=== PATIENT | female | born 1940 | race Caucasian/White ===

== ENCOUNTER 2016-09-10 06:01 | Inpatient (IN) | payer MEDICARE, BC ==
--- NOTE | 2016-08-31 16:26 | HP ---
HISTORY AND PHYSICAL: DATE OF OFFICE VISIT: 08/31/16 DATE OF ADMISSION/SURGERY: 09/10/16 SURGEON: Liseth Guthrie MD PROCEDURE: Left total hip arthroplasty. HISTORY OF PRESENT ILLNESS: Ms. Shetty is a 76-year-old female with complaints of left hip pain. She has failed conservative management and has elected to proceed with a left total hip arthroplasty, which is scheduled for with Dr. Guthrie. PAST MEDICAL HISTORY: 1. Hypertension. 2. Hypothyroidism. PAST SURGICAL HISTORY: 1. Appendectomy. 2. Tubal ligation. 3. Bilateral carpal tunnel release. 4. Cataract surgery x2. 5. Right total knee arthroplasty. 6. Right total hip arthroplasty. CURRENT MEDICATIONS: 1. Levothyroxine. 2. Hydrochlorothiazide. 3. Enalapril. 4. Naproxen. 5. Aspirin. 6. Vitamin D. 7. Vitamin C. 8. Calcium. 9. Albuterol. ALLERGIES: No known drug allergies. FAMILY HISTORY: Heart disease and lymphoma. SOCIAL HISTORY: She is a 76-year-old female. She is . She does not smoke or use drugs. She drinks a glass of wine with dinner. REVIEW OF SYSTEMS: A complete 14-point review of systems was reviewed with the patient. All was negative or noncontributory. PHYSICAL EXAMINATION GENERAL: She is well developed, well nourished, in no acute distress. VITAL SIGNS: She stands 5 feet 3 inches tall, weighs 180 pounds, her blood pressure is 154/80, and heart rate 64. HEENT: Normocephalic, atraumatic. NECK: Supple. No palpable lymph nodes. Trachea is midline. PULMONARY: Clear to auscultation bilaterally. No wheezes, rhonchi, or rales. CARDIO: Regular rate and rhythm. Strong S1, S2. No murmurs, gallops, or rubs. No peripheral edema. ABDOMEN: Soft, nontender, and nondistended. NEUROLOGICAL: She is alert and oriented x3. Cranial nerves II through XII are intact. MUSCULOSKELETAL: Left lower extremity: The skin is intact. She walks with a slightly antalgic-type gait favoring her left hip. She has decreased range of motion of the left hip secondary to pain. She has 2+ dorsalis pedis pulses and intact sensation and her lower extremity muscle group strengths are intact to 5/ 5. ASSESSMENT AND PLAN: Ms. Shetty is a 76-year-old female with complaints of left hip pain secondary to advanced osteoarthritis. She has failed conservative management and has elected to proceed with the left total hip arthroplasty, which is scheduled for 09/10/16. Coumadin, Colace, and Percocet were sent to her pharmacy at today's visit for postoperative pain control and DVT prophylaxis. She takes aspirin and naproxen daily and I have instructed her to stop these medications 1 week prior to the surgery. Dr. Guthrie discussed the risks and benefits of the surgery at today's visit and all of her questions were answered. She will see Dr. Guthrie back in clinic 10 to 14 days after the surgery. MAGNOLIA LAVAREZ [id number]/[facility] #: [id number] MTDD
[~2016-09-10 06:01] MED LIST: Buffered Lidocaine 1% SYRIN* 3 ML/SYR SYRINGE INTRADERM ONE; Famotidine IV* 10 MG/ML 2 ML (20 mg) IV ONE; Levalbuterol 0.63MG/3ML NEB INH ONE; Metoclopramide TAB* 10 MG PO ONE; NS 0.9% 1000 ML* 1,000 ML IV ONE
[2016-09-10] MEDS ORDERED: ceFAZolin 2 GM PREMIX(*) 2 GM/50 ML BAG IVPB ONE (06:18)
[2016-09-10] MEDS ORDERED: Famotidine IV* 10 MG/ML 2 ML (20 mg) ONE (06:18)
[2016-09-10] MEDS ORDERED: Metoclopramide TAB* 10 MG ONE (06:18)
[2016-09-10] MEDS ORDERED: Levalbuterol 1.25MG/0.5ML NEB ONE (06:18)
[2016-09-10] MEDS ORDERED: fentaNYL* 50 MCG/ML 2 ML VIAL (100 MCG VIAL) ONE (07:06)
[2016-09-10] MEDS ORDERED: KETAMINE HCL* 50 MG/ML 10 ML VIAL ONE (07:06)
[2016-09-10] MEDS ORDERED: Ketorolac INJ* 30 MG/ML 1 ML VIAL ONE (07:06)
[2016-09-10] MEDS ORDERED: Lidocaine 2% PF* 5 ML VIAL ONE (07:06)
[2016-09-10] MEDS ORDERED: Bupivacaine 0.5% SDV PF* 30 ML VIAL ONE ×2 (07:06→08:30)
[2016-09-10] MEDS ORDERED: Midazolam* 1 MG/ML 5 ML VIAL (5 MG) ONE (07:06)
[2016-09-10] MEDS ORDERED: Dexamethasone IV* 4 MG/ML 1 ML (4 MG) ONE (07:06)
[2016-09-10] MEDS ORDERED: Morphine PF AMP (0.5MG/ML)* 5 MG/10 ML AMP ONE (07:06)
[2016-09-10] MEDS ORDERED: Propofol* 10 MG/ML 20 ML BTL IV PUSH ONE (07:06)
[2016-09-10] MEDS ORDERED: Ondansetron INJ* 2 MG/ML VIAL ONE (07:06)
[2016-09-10] MEDS ORDERED: Midazolam* 1 MG/ML 2 ML VIAL (2 MG) ONE ×2 (07:52→10:24)
[2016-09-10] MEDS ORDERED: Propofol* 500 MG/50 ML BTL ONE (08:20)
[2016-09-10] MEDS ORDERED: EPHEDrine (Pressors)* 50 MG/ML VIAL ONE (08:35)
[2016-09-10] MEDS ORDERED: Phenylephrine INJ* 10 MG/ML 1 ML VIAL (10 MG) ONE (08:52)
[2016-09-10] MEDS ORDERED: Ondansetron INJ* 2 MG/ML VIAL IV PRN ×2 (09:04→09:06)
[2016-09-10] MEDS ORDERED: DiMENhydriNATE IV* 50 MG/ML VIAL IV PUSH PRN (09:04)
[2016-09-10] MEDS ORDERED: Phenylephrine INJ* 50 MG in NS 0.9% 250 ML* 245 ML IV PRN (09:04)
[2016-09-10] MEDS ORDERED: fentaNYL* 50 MCG/ML 2 ML VIAL (100 MCG VIAL) IV PRN (09:04)
[2016-09-10] MEDS ORDERED: diPHENhydraMINE IV* 50 MG/ML 1 ml VIAL (BENADRYL) IV PRN ×2 (09:04→09:06)
[2016-09-10] MEDS ORDERED: Naloxone* 0.4 MG/ML 1 ML VIAL IV PRN (09:06)
[2016-09-10] MEDS ORDERED: oxyCODONE/Acetamin 5/325 MG* TAB PO PRN ×2 (09:06)
[2016-09-10] MEDS ORDERED: Ketorolac INJ* 30 MG/ML 1 ML VIAL IV PRN (09:06)
[2016-09-10] MEDS ORDERED: EPHEDrine (Pressors)* 50 MG/ML VIAL IV PUSH PRN (09:10)
[2016-09-10] MEDS ORDERED: Lactated Ringers 500 ml BAG* 500 ML IV PRN (09:10)
--- NOTE | 2016-09-10 10:28 | RAD ---
INDICATION: Left total hip replacement COMPARISON: June 17, 2016 TECHNIQUE/findings: A single crosstable lateral portable image of the pelvis obtained for sizing shows initiation of total hip arthroplasty with placement of a prosthesis for sizing purposes.
[2016-09-10] MEDS ORDERED: LACTULOSE* 30 ML UDC PO PRN (11:20)
[2016-09-10] MEDS ORDERED: Polyethylene Glycol 3350* 17 GM PACKET PO PRN (11:20)
[2016-09-10] MEDS ORDERED: Morphine INJ* 2 MG/ML 1 ML SYRINGE IV PRN (11:20)
[2016-09-10] MEDS ORDERED: Bisacodyl SUPP* 10 MG SUPP PR PRN (11:20)
[2016-09-10] MEDS ORDERED: Acetaminophen TAB* 325 MG PO PRN (11:20)
[2016-09-10] MEDS: Ropivacaine* 300 MG in NS 0.9% 250 ML* 240 ML EPIDURAL SCH ×2 (12:32→15:03)
--- NOTE | 2016-09-10 15:09 | RAD ---
INDICATION: Status post total left hip replacement surgery. COMPARISON: Comparison is made with a prior x-ray study from June 17, 2016. TECHNIQUE: An AP view of the pelvis was obtained. FINDINGS: The patient is status post total left hip replacement surgery and remote total right hip replacement surgery. The bones and prostheses are in normal alignment. There is a small amount of air adjacent to the left hip consistent with the patient's recent surgery. IMPRESSION: STATUS POST TOTAL LEFT HIP REPLACEMENT SURGERY.
--- NOTE | 2016-09-10 15:09 | RAD ---
INDICATION: Status post total left hip replacement surgery. COMPARISON: Comparison is made with a prior x-ray study of the left hip from June 17, 2016. TECHNIQUE: AP and lateral films of the left hip were obtained. FINDINGS: The patient is status post total left hip replacement surgery. The bones and prostheses are in normal alignment. There is a small amount of air in the adjacent soft tissues consistent with the patient's recent surgery. IMPRESSION: STATUS POST TOTAL LEFT HIP REPLACEMENT SURGERY.
[2016-09-10] MEDS: ceFAZolin 1 GM in Dextrose (*) 1 GM/50 ML BAG IVPB SCH ×2 (15:43→23:34)
--- NOTE | 2016-09-10 15:49 | CONS ---
CONSULTATION REPORT: DATE OF CONSULT: 09/10/16 PRIMARY CARE PROVIDER: Frederick Damon MD ATTENDING PHYSICIAN: Savi Joseph MD* (dictated by Demarcus Gray NP) PROVIDER REQUESTING CONSULTATION: Dr. Guthrie HISTORY OF PRESENT ILLNESS: Ms. Shetty is a 76-year-old female with past medical history significant for hypertension, hypothyroidism, and arthritis who underwent an elective left total hip arthroplasty today with Dr. Guthrie. Postoperatively, the patient is doing well. She is hypotensive due to her spinal anesthesia in the recovery room. The patient states that leading up to surgery, she has been in her good state of health with the exception of left hip pain. The patient denies any recent fever, chills, chest pain, shortness of breath, nausea, vomiting, or diarrhea. Hospitalists were asked to assist with the management of this patient during her postoperative period. PAST MEDICAL HISTORY: 1. Hypertension. 2. Hypothyroidism. 3. Arthritis. PAST SURGICAL HISTORY: 1. Status post appendectomy. 2. Status post tubal ligation. 3. Status post bilateral carpal tunnel release. 4. Status post bilateral cataract extractions. 5. Status post right total knee arthroplasty. 6. Status post right total hip arthroplasty. HOME MEDICATIONS: Include: 1. Levothyroxine 100 mcg oral daily. 2. Hydrochlorothiazide 25 mg oral daily. 3. Enalapril 10 mg oral twice daily. 4. Naproxen 500 mg oral twice daily. 5. Aspirin 81 mg oral daily. 6. Vitamin D 2000 IU oral daily. 7. Albuterol 1 to 2 puffs inhalation every 4 to 6 hours as needed for shortness of breath or wheeze. 8. Zyrtec 10 mg oral daily as needed for allergy symptoms. ALLERGIES: No known drug allergies. FAMILY HISTORY: The patient denies any family history of coronary artery disease or diabetes mellitus. The patient's sister has a history of lymphoma. SOCIAL HISTORY: The patient denies smoking or recreational drug use. The patient drinks 1 glass of wine daily with dinner. The patient lives with her , Fausto Shetty, who will be her surrogate decision maker in the event she is unable to make decisions for herself. REVIEW OF SYSTEMS: I performed a 14-point review of systems. All the pertinent positives and negatives are mentioned in the history of present illness. The remaining review of systems are negative. PHYSICAL EXAM: Appearance: The patient is alert and appears to be in no acute distress. Vital Signs: Temperature 97.0, heart rate 76, respiratory rate 20, O2 sat 97% on 4 L via nasal cannula, and blood pressure 86/49. HEENT: Normocephalic, atraumatic. Pupils are equal and reactive to light. Extraocular movements are intact. Cardiovascular: Regular rate and rhythm. S1 , S2 present. There are no murmurs, rubs, or gallops heard. Extremities: There is no lower extremity edema. DP and PT pulses are 2+ and symmetric. Respiratory: There is no accessory muscle use and the lungs are clear to auscultation bilaterally. Abdomen: Soft, nontender, and nondistended. There are bowel sounds present x4. Musculoskeletal: There is no clubbing or cyanosis noted. The patient exhibits good strength in all extremities, although she does have some limited movement in her lower extremities due to spinal anesthesia. Skin: There is a dressing on her left hip that is clean, dry, and intact. Neurological: Cranial nerves II through XII are grossly intact. The patient moves all extremities. Psychological: The patient is calm and cooperative. DIAGNOSTIC STUDIES/LAB DATA: Preop labs from 08/31/16: Urinalysis negative with no growth in the urine culture. Sodium 127, potassium 3.7, chloride 91, CO2 27, BUN 18, creatinine 0.90, and glucose 97. White blood cell count 6.9, hemoglobin 13.0, hematocrit 38, and platelet count 271. Sodium from today preoperative is 130. Chest x-ray from 08/31/16 shows no active cardiopulmonary disease. Preoperative EKG from 08/19/16 shows a normal sinus rhythm with a rate of 61. Pelvis x-ray from today, radiologist's impression: A single cross-table lateral portable image of the pelvis obtained for sizing shows initiation of total hip arthroplasty with placement of a prosthesis for sizing purposes. IMPRESSION: Ms. Shetty is a 76-year-old female with past medical history significant for hypertension, hypothyroidism, and arthritis who underwent an elective left total hip arthroplasty today with Dr. Guthrie. Hospitalists were asked to assist with the co-management of this patient during her hospitalization. 1. Status post left total hip arthroplasty: Management will be per Orthopedic Surgery. The patient had spinal anesthesia and will initially have epidural for pain control. The patient's hemoglobin and hematocrit will be trended. She will have Physical Therapy and Occupational Therapy. The patient will have a urinary catheter in place until postop day 1. 2. Hypertension: At this time, the patient is actually hypotensive with pressures in the 80s to 90s. I suspect this is related to the patient's spinal anesthesia. At this time, I recommend holding the patient's hydrochlorothiazide and enalapril. These can be restarted accordingly possibly in the morning based off of her blood pressures. 3. Hyponatremia. The patient's sodium has improved since her preoperative labs. Will recheck labs in the morning. 4. Hypothyroidism: The patient should be continued on her home levothyroxine dose. 5. Fluids, electrolytes, and nutrition: The patient will be on a clear liquid , to advance as tolerated diet. She will also receive IV fluids overnight. 6. DVT prophylaxis: The patient will be on Lovenox and warfarin per Orthopedic Surgery. 7. Code status: Full code. 8. Disposition: Disposition per Orthopedic Surgery. TIME SPENT: Time for this consultation was 45 minutes and 25 minutes was spent with the patient discussing medications, past medical history, and the events leading up to her arrival today and performing a physical examination. The case has been reviewed with the attending, Dr. Joseph, who agrees with the plan of care. Reviewed by DEMARCUS GRAY, LOPPER-C 09/10/16 2148 ADDENDUM TO CONSULTATION REPORT: Tracie Shetty is a 76-year-old female with history of left hip arthritis, who is status post left total hip arthroplasty. The patient also has a history of hypertension, hypothyroidism, and for those medical conditions, medicine service was consulted postoperatively for comanagement. For further details of the patient's consultation, please see history and physical dictated by Demarcus Gray NP on 09/10/16 with which I agree. Savi Joseph MD CC: Frederick Damon MD; Dr. Guthrie* [id number]/[facility] #: [id number]/[facility] #: [id number] ITALIA
--- NOTE | 2016-09-10 15:49 | CONS ---
CONSULTATION REPORT: ADDENDUM: Tracie Shetty is a 76-year-old female with history of left hip arthritis, who is status pos t left total hip arthroplasty. The patient also has a history of hypertension, hypothyroidism, and for those medical conditions, medicine service was consulted postoperatively for comanagement. For further details of the patient's consultation, please see history and physical dictated by Agatha Perez NP on 09/10/16 with which I agree. [id number]/[facility] #: [id number]
[2016-09-10] MEDS ORDERED: Warfarin TAB(*) 6 MG PO ONE (17:00)
[2016-09-10] MEDS: Docusate CAP* 100 MG PO SCH (21:31)
[2016-09-11] MEDS ORDERED: oxyCODONE TAB* 5 MG TAB PO PRN (01:00)
[2016-09-11] MEDS ORDERED: Lactated Ringers 500 ml BAG* 500 ML IV ONE ×2 (01:00→09:00)
[2016-09-11] MEDS ORDERED: oxyCODONE/Acetamin 5/325 MG* TAB PO PRN (01:00)
[2016-09-11] MEDS: oxyCODONE/Acetamin 5/325 MG* TAB PO PRN ×5 (03:45→20:58)
[2016-09-11] MEDS: ceFAZolin 1 GM in Dextrose (*) 1 GM/50 ML BAG IVPB SCH (05:56)
[2016-09-11] MEDS: Levothyroxine TAB* 100 MCG TAB PO SCH (05:56)
[2016-09-11] MEDS ORDERED: Ondansetron INJ* 2 MG/ML VIAL IV PRN (06:00)
[2016-09-11] MEDS ORDERED: Ondansetron TAB* 4 MG PO PRN (06:00)
[2016-09-11 07:14] LABS: Hematocrit 24 % (35-47); Hemoglobin 8.3 g/dl (12.0-16.0)
[2016-09-11 07:35] LABS: BUN/Creatinine Ratio 21.3 (8-20); Calcium 8.7 mg/dL (8.6-10.3); EGFR African American 89.9 (>60); EGFR Non-African American 69.9 (>60); Potassium 4.2 mmol/L (3.5-5.0)
--- NOTE | 2016-09-11 07:52 | OP ---
OPERATIVE REPORT: DATE OF OPERATION: 09/10/16 DATE OF : 42 SURGEON: Liseth Guthrie MD SECURITIES TELLER: MAGNOLIA Sotelo ANESTHESIOLOGIST: Dr. George. ANESTHESIA: Spinal anesthesia. PRE-OP DIAGNOSIS: Severe end-stage degenerative osteoarthritis of the left hip joint. POST-OP DIAGNOSIS: Severe end-stage degenerative osteoarthritis of the left hip joint. OPERATIVE PROCEDURE: Left total hip arthroplasty with modifier for morbid obesity adding 1 hour of time to the surgical case. INDICATIONS: Ms. Shetty is a 76-year-old female with years of increasingly severe left hip pain. Radiographs confirmed egal-cy-gzvy arthritis. She failed conservative treatment with antiinflammato yumiko, pain medication, ambulatory assistive devices, and physical therapy. She elected to undergo l eft total hip arthroplasty due to continued pain and decreased quality of life. Informed consent wa s obtained from the patient. She understood the risks of surgery included but were not limited to b leeding, infection, damage to nearby structures, continued pain, and need for further surgery. Intr aoperative fracture, nerve palsy, leg length discrepancy, dislocation, hardware failure, loosening, stroke, heart attack, blood clot, and . She wished to proceed. COMPLICATIONS: None. EBL: 400 cc. SPECIMEN: Femoral head and acetabular reaming sent to Pathology. HARDWARE USED: This is uncemented Aurora total hip arthroplasty hardware. For the cup, a Trident PSL cluster acetabular shell 50E, a 42E MDM cement with liner was used with 2 screws, 20 and 25 mm l ength. For the femur, an Accolade TMZF size 3 with a 127-degree neck, femoral head 28 -4 and the re storation ADM/MDM X3 insert 28-28/48-42E. INTRAOPERATIVE FINDINGS: Intraoperatively, the patient had severe end-stage arthritis with wear and thinning of the posterior acetabular wall. She had 10 cm or more of subcutaneous fat and her morbi dly obese body habitus did add significant operative time to the case. DESCRIPTION OF PROCEDURE: Ms. Shetty was identified in the preanesthesia unit. Her left lower extr emity was marked as the correct operative side. Informed consent was signed and placed in the chart . The patient was taken to the operating room and placed under spinal anesthesia. A Tineo catheter was placed. The patient was placed in the right lateral decubitus position with a Wixson setup. L eft lower extremity was prepped and draped in the usual sterile fashion. Preop time-out was made to correctly identify the patient's side and site. Appropriate perioperative antibiotics were given w ithin 1 hour of incision. A 15-cm posterior hip incision was made and electrocautery was used to dissect down to the subcutane ous fat layer which was at least 10 cm in length. Lateral fascial layer was incised in line with th e skin incision. Lateral fascial layer had significant tightness. The greater trochanter was noted to be quite posterior and anatomically. This made the exposure difficult. Charnley retractor was placed and the posterior aspect of the hip joint was poorly visualized. Electrocautery was used to raise a posterolateral flap of tendon and capsule. These were tagged with #5 Ethibond suture. The hip was carefully dislocated. Lesser troch to center of the femoral head measured 50 mm. Oscillati ng saw was used to make the appropriate femoral neck cut. Femoral head was carefully removed and se nt to Pathology. The femur was carefully retracted anteriorly. This was difficult throughout the preparation of the acetabulum due to her morbid obesity. After appropriate placement of retractors, the acetabulum was visualized. There was extensive osteophyte formation and full loss of cartilage. The posterior wa ll was quite thin and deficient. Long-handled knife was used to remove any remaining labrum from th e acetabular rim. The acetabulum sequentially reamed up to a size 50 reamer. A bleeding bone bed w as obtained. A trial of 50 mm acetabulum was impacted and noted to have satisfactory fit. Next, a Trident PSL cluster acetabular shell size 50E was chosen and impacted into the acetabulum. The acetabulum was stable with appropriate anteversion and abduction angle. Two screws were placed in the superior posterior quadrant for extra stability length 20 and 25 mm. MDM cement with liner w as chosen 42E. This was impacted into the acetabulum without difficulty. A liner was noted to be s table. Next, attention was turned to preparation of the proximal femur. Placement of retractors and presen tation of the proximal femur was made difficult by the body habitus. A canal finder was used to ent er the proximal femur. The proximal femur was sequentially broached up to a size 3. A 127-degree n sarbjit was chosen for trial. A 28 -4 femoral head trial with the 42 insert trial was chosen. The lesse r troch to center of the femoral head measured 50 mm. The hip was reduced and taken through a range of motion. The hip was stable in all positions. There was good soft tissue tension and appropriat e leg lengths. The hip was carefully dislocated. Accolade TMZF size 3 with a 127-degree neck was chosen. This was impacted into the femoral canal without difficulty. There was excellent stability of the final imp lant. A 28 -4 LFIT V40 femoral head with an X3 insert for ADM/MDM /48/42E was chosen. This was i mpacted on to the femoral neck. The hip was reduced and taken through a range of motion. The hip wa s stable in all positions. The hip was copiously irrigated with sterile saline. Previously tagged capsular tendons were reappr oximated to the posterolateral femur through two trochanteric drill holes. The lateral fascial laye r was reapproximated using interrupted #1 Vicryl's. The rest of the incision was closed in a layere d fashion using 0 and 2-0 Vicryl's. Skin was closed using running 3-0 Monocryl and Dermabond. Ster ile Adaptic, 4x4's, and paper tape were used to cover the incision. The patient's anesthesia was reversed without difficulty. She was taken to the PACU in stable cond ition. Intended weightbearing will be weightbearing as tolerated with posterior hip precautions. I ntended DVT prophylaxis will be Coumadin with a Lovenox bridge. [id number]/[facility] #: [id number]
--- NOTE | 2016-09-11 08:04 | PN ---
Progress Note - Progress Note SOAP: Subjective: [76 y/o female s/p L total hip arthroplasty with modifier for obesity. VSS over night. Pain controlled with PO. Drain with bloody drainage. NO complaints, no concerns. afebrile. ] Objective: [General- Well appearing, NAD, sitting comfortably MSK- L knee Dressing intact, no drainage noted. Drain removed without complications. + DF/PF, mild swelling L LE"s, neg homans b/l, sensation grossly intact. ] Vital Signs Temp 97.6 F 09/11/16 03:35 Pulse 66 09/11/16 03:35 Resp 16 09/11/16 05:45 BP 116/63 09/11/16 03:35 Pulse Ox 96 09/11/16 03:35 Intake & Output 09/10/16 09/11/16 09/11/16 18:59 06:59 18:59 Intake Total 3050 2780 Output Total 500 400 Balance 2550 2380 Intake: IV Fluids 3050 1945 LR 3000 1945 NS 50ML, Cefazolin 2G 50 IVPB 105 ABX - CEFAZOLIN 105 Oral 730 Output: Urine 200 Tineo 400 Estimated Blood Loss 300 Other: # Bowel Movements 0 Laboratory Results - last 24 hr 09/11/16 09/11/16 09/11/16 06:31 06:31 06:31 Hgb 8.3 L Hct 24 L INR (Anticoag Therapy) 0.93 Sodium 127 L Potassium 4.2 Chloride 96 L Carbon Dioxide 24 Anion Gap 7 BUN 17 Creatinine 0.80 Est GFR ( Amer) 89.9 Est GFR (Non-Af Amer) 69.9 BUN/Creatinine Ratio 21.3 H Glucose 131 H Calcium 8.7 Assessment: [76 y/o female s/p L total hip arthroplasty with modifier for obesity 3/ ] Plan: [- DVT prophy- continue lovenox, coumadin 6mg tonight - Continue PT/ OT - COntinue pain regimen - H&H stable, continue to monitor - medicine for hyponatremia. ] Active Medications Generic Name Dose Route Start Last Admin Trade Name Freq PRN Reason Stop Dose Admin Acetaminophen 650 mg 09/10/16 11:20 Tylenol Tab* PO Q4H PRN PAIN OR TEMPERATURE Albuterol 2 puff 09/10/16 11:25 Ventolin Hfa Inhaler* INH BID PRN SOB/WHEEZING Bisacodyl 10 mg 09/10/16 11:20 Dulcolax Supp* FL DAILY PRN constipation Diphenhydramine HCl 12.5 mg 09/11/16 01:00 Benadryl Iv* IV Q6H PRN PRURITIS Docusate Sodium 100 mg 09/10/16 21:00 09/10/16 21:31 Colace Cap* PO 100 mg BID FERNANDO Administration Enoxaparin Sodium 30 mg 09/11/16 11:00 Lovenox(*) SUBCUT Q24H [facility] Ketorolac Tromethamine 30 mg 09/10/16 09:06 Toradol Inj* IV 09/11/16 09:08 Q6H PRN PAIN Lactulose 30 ml 09/10/16 11:20 Lactulose* PO Q6H PRN constipation Levothyroxine Sodium 100 mcg 09/11/16 06:00 09/11/16 05:56 Synthroid Tab* PO 100 mcg 0600 [facility] Administration Magnesium Hydroxide 30 ml 09/10/16 11:20 Milk Of Magnesia Liq* PO Q6H PRN constipation Ondansetron HCl 4 mg 09/11/16 06:00 Zofran Inj* IV Q6H PRN nausea Ondansetron HCl 4 mg 09/11/16 06:00 Zofran Tab* PO Q6H PRN NAUSEA Oxycodone HCl 10 mg 09/11/16 01:00 Roxycodone Tab* PO Q4H PRN SEVERE PAIN Oxycodone/Acetaminophen 1 tab 09/11/16 01:00 Percocet 5/325 Tab* PO Q3H PRN PAIN - MODERATE Oxycodone/Acetaminophen 2 tab 09/11/16 01:00 09/11/16 03:45 Percocet 5/325 Tab* PO 2 tab Q3H PRN Administration PAIN - MODERATE Polyethylene Glycol/Electrolytes 17 gm 09/10/16 11:20 Miralax* PO DAILY PRN Constipation
[2016-09-11] MEDS: Docusate CAP* 100 MG PO SCH ×2 (08:28→20:57)
--- NOTE | 2016-09-11 08:28 | PN ---
Subjective Date of Service: 09/11/16 Interval History: Pt feels well today. Minimal pain in post op hip Objective Active Medications: Acetaminophen (Tylenol Tab*) 650 mg PO Q4H PRN PRN Reason: PAIN OR TEMPERATURE Albuterol (Ventolin Hfa Inhaler*) 2 puff INH BID PRN PRN Reason: SOB/WHEEZING Bisacodyl (Dulcolax Supp*) 10 mg AR DAILY PRN PRN Reason: constipation Diphenhydramine HCl (Benadryl Iv*) 12.5 mg IV Q6H PRN PRN Reason: PRURITIS Docusate Sodium (Colace Cap*) 100 mg PO BID [facility] Last Admin: 09/10/16 21:31 Dose: 100 mg Enoxaparin Sodium (Lovenox(*)) 30 mg SUBCUT Q24H [facility] Ketorolac Tromethamine (Toradol Inj*) 30 mg IV Q6H PRN PRN Reason: PAIN Stop: 09/11/16 09:08 Lactulose (Lactulose*) 30 ml PO Q6H PRN PRN Reason: constipation Levothyroxine Sodium (Synthroid Tab*) 100 mcg PO 0600 [facility] Last Admin: 09/11/16 05:56 Dose: 100 mcg Magnesium Hydroxide (Milk Of Magnesia Liq*) 30 ml PO Q6H PRN PRN Reason: constipation Ondansetron HCl (Zofran Inj*) 4 mg IV Q6H PRN PRN Reason: nausea Ondansetron HCl (Zofran Tab*) 4 mg PO Q6H PRN PRN Reason: NAUSEA Oxycodone HCl (Roxycodone Tab*) 10 mg PO Q4H PRN PRN Reason: SEVERE PAIN Oxycodone/Acetaminophen (Percocet 5/325 Tab*) 1 tab PO Q3H PRN PRN Reason: PAIN - MODERATE Oxycodone/Acetaminophen (Percocet 5/325 Tab*) 2 tab PO Q3H PRN PRN Reason: PAIN - MODERATE Last Admin: 09/11/16 03:45 Dose: 2 tab Polyethylene Glycol/Electrolytes (Miralax*) 17 gm PO DAILY PRN PRN Reason: Constipation Warfarin Sodium (Coumadin Tab(*)) 6 mg PO ONCE@1700 [facility] PRN Reason: Protocol Stop: 09/11/16 17:01 Vital Signs 0309/10/16 09/10/16 11:32 11:35 11:40 Temperature 97.0 F Pulse Rate 76 74 73 Respiratory 20 17 13 Rate Blood Pressure 86/49 91/59 89/55 (mmHg) O2 Sat by Pulse 97 98 96 Oximetry 09/10/16 09/10/16 09/10/16 11:45 12:00 12:15 Temperature 96.8 F Pulse Rate 73 71 69 Respiratory 10 13 10 Rate Blood Pressure 91/74 90/54 91/62 (mmHg) O2 Sat by Pulse 99 100 99 Oximetry 09/10/16 09/10/16 09/10/16 12:30 12:45 13:00 Temperature 96.8 F Pulse Rate 68 73 69 Respiratory 10 13 11 Rate Blood Pressure 97/63 93/61 101/57 (mmHg) O2 Sat by Pulse 99 99 100 Oximetry 09/10/16 09/10/16 09/10/16 13:50 13:51 15:18 Temperature 97.1 F 96.3 F Pulse Rate 75 72 Respiratory 18 14 18 Rate Blood Pressure 123/66 106/67 (mmHg) O2 Sat by Pulse 99 99 Oximetry 09/10/16 09/10/16 09/10/16 15:50 16:01 17:54 Temperature Pulse Rate 65 74 Respiratory 16 16 Rate Blood Pressure 108/65 107/73 (mmHg) O2 Sat by Pulse 99 99 99 Oximetry 09/10/16 09/10/16 09/10/16 17:55 18:22 19:00 Temperature 97.1 F Pulse Rate Respiratory 16 Rate Blood Pressure (mmHg) O2 Sat by Pulse 98 Oximetry 09/10/16 09/10/16 09/10/16 19:06 19:50 20:00 Temperature 97.8 F Pulse Rate 65 Respiratory 16 16 16 Rate Blood Pressure 114/64 (mmHg) O2 Sat by Pulse 98 Oximetry 09/10/16 09/10/16 09/10/16 21:00 22:00 23:00 Temperature Pulse Rate Respiratory 16 18 16 Rate Blood Pressure (mmHg) O2 Sat by Pulse Oximetry 09/10/16 09/11/16 09/11/16 23:28 03:35 03:45 Temperature 97.4 F 97.6 F Pulse Rate 67 66 Respiratory 16 16 16 Rate Blood Pressure 111/61 116/63 (mmHg) O2 Sat by Pulse 97 96 Oximetry 09/11/16 05:45 Temperature Pulse Rate Respiratory 16 Rate Blood Pressure (mmHg) O2 Sat by Pulse Oximetry Oxygen Devices in Use Now: Nasal Cannula - at 2 L Appearance: 76 yo F in nAd, aAOx3 Eyes: No Scleral Icterus, PERRLA Ears/Nose/Mouth/Throat: NL Teeth, Lips, Gums, Mucous Membranes Moist Neck: NL Appearance and Movements; NL JVP Respiratory: Symmetrical Chest Expansion and Respiratory Effort, Clear to Auscultation Cardiovascular: NL Sounds; No Murmurs; No JVD, RRR Abdominal: NL Sounds; No Tenderness; No Distention Lymphatic: No Cervical Adenopathy Extremities: No Edema, No Clubbing, Cyanosis Skin: No Nodules or Sclerosis, - - left post op thigh eveluated. slight edema, no hematoma, post op dressings not removed. Neurological: Alert and Oriented x 3, NL Muscle Strength and Tone Result Diagrams: 09/11/16 06:31 09/11/16 06:31 Assess/Plan/Problems-Billing Assessment: 76 yo f with H/o hypothyroidism , HTN s/p L hip replacement by Dr. Guthrie on 09/10/16 - Patient Problems (1) Status post left hip replacement Comment: As per Dr. Guthrie (2) HTN (hypertension) Comment: SBP's in 110-120 without meds. will restart ACEI for tomorrow.Holding HCTZ due to hyponatremia (3) Hypothyroidism Comment: cont outpatient Synthroid (4) Postoperative anemia Comment: Hb 8.3, acute post op. Hemodynamically stable Management as per ortho service (5) Hyponatremia Comment: mild, post op, in pt on IVF. will stop IVF, recheck levels in aM (6) DVT prophylaxis Comment: Lovenox and coumadin as per Dr. Guthrie
[2016-09-11] MEDS ORDERED: Hydrochlorothiazide TAB* 25 MG PO SCH (09:00)
[2016-09-11] MEDS: diPHENhydraMINE IV* 50 MG/ML 1 ml VIAL (BENADRYL) IV PRN (09:01)
[2016-09-11] MEDS: Enalapril TAB* 5 MG PO SCH (09:01)
[2016-09-11] MEDS: Enoxaparin(*) 30 MG/0.3 ML SYR SUBCUT SCH (11:25)
[2016-09-11] MEDS: Magnesium Hydroxide LIQ* 30 ML UDC PO PRN (16:44)
[2016-09-11] MEDS ORDERED: Warfarin TAB(*) 6 MG PO SCH (17:00)
[2016-09-12] MEDS: diPHENhydraMINE IV* 50 MG/ML 1 ml VIAL (BENADRYL) IV PRN (00:01)
[2016-09-12] MEDS: oxyCODONE/Acetamin 5/325 MG* TAB PO PRN ×3 (01:54→10:39)
[2016-09-12] MEDS: Magnesium Hydroxide LIQ* 30 ML UDC PO PRN (04:52)
[2016-09-12] MEDS: Levothyroxine TAB* 100 MCG TAB PO SCH (06:13)
[2016-09-12 07:34] LABS: Hematocrit 21 % (35-47); Hemoglobin 7.2 g/dl (12.0-16.0); Mean Corpuscular HGB Conc 35 g/dl (31-36); Mean Corpuscular Hemoglobin 30 pg (27-31); Mean Corpuscular Volume 86 fL (80-97); Mean Platelet Volume 8 um3 (7.4-10.4); Red Blood Count 2.39 10^6/ul (4.0-5.4); Red Cell Distribution Width 13 % (10.5-15); White Blood Count 9.1 10^3/ul (3.5-10.8)
[2016-09-12] MEDS: Docusate CAP* 100 MG PO SCH (08:44)
[2016-09-12] MEDS: Albuterol HFA INHALER* 8 gm MDI INH PRN ×2 (08:44→16:27)
[2016-09-12] MEDS: Enalapril TAB* 5 MG PO SCH (08:44)
--- NOTE | 2016-09-12 08:54 | PN ---
Progress Note - Progress Note SOAP: Subjective: Pt. OOB in chair with no complaints. Pain controlled with PO meds. Objective: Vital Signs Temp Pulse Resp BP Pulse Ox 97.9 F 71 16 118/62 94 09/12/16 07:15 09/12/16 07:15 09/12/16 07:15 09/12/16 07:15 09/12/16 07:15 Laboratory Last Values WBC 9.1 10^3/ul (3.5-10.8) 09/12/16 07:05 RBC 2.39 10^6/ul (4.0-5.4) L 09/12/16 07:05 Hgb 7.2 g/dl (12.0-16.0) L 09/12/16 07:05 Hct 21 % (35-47) L 09/12/16 07:05 MCV 86 fL (80-97) 09/12/16 07:05 MCH 30 pg (27-31) 09/12/16 07:05 MCHC 35 g/dl (31-36) 09/12/16 07:05 RDW 13 % (10.5-15) 09/12/16 07:05 Plt Count 204 10^3/ul (150-450) 09/12/16 07:05 MPV 8 um3 (7.4-10.4) 09/12/16 07:05 INR (Anticoag Therapy) 1.27 (0.89-1.11) H 09/12/16 07:05 Sodium 127 mmol/L (133-145) L 09/11/16 06:31 Potassium 4.2 mmol/L (3.5-5.0) 09/11/16 06:31 Chloride 96 mmol/L (101-111) L 09/11/16 06:31 Carbon Dioxide 24 mmol/L (22-32) 09/11/16 06:31 Anion Gap 7 mmol/L (2-11) 09/11/16 06:31 BUN 17 mg/dL (6-24) 09/11/16 06:31 Creatinine 0.80 mg/dL (0.51-0.95) 09/11/16 06:31 Est GFR ( Amer) 89.9 (>60) 09/11/16 06:31 Est GFR (Non-Af Amer) 69.9 (>60) 09/11/16 06:31 BUN/Creatinine Ratio 21.3 (8-20) H 09/11/16 06:31 Glucose 131 mg/dL (70-100) H 09/11/16 06:31 Calcium 8.7 mg/dL (8.6-10.3) 09/11/16 06:31 incision: c/d; dressing changed PE: 2+ DP pulses, intact B/L LE strngths, intact sensation Assessment: s/p left DEVORA Plan: Continue PT Continue Lovenox/ Coumadin DVT prophylaxis 2units PRBC's home today; RTC 10-14 days
[2016-09-12] MEDS: Enoxaparin(*) 30 MG/0.3 ML SYR SUBCUT SCH (10:40)
--- NOTE | 2016-09-12 15:32 | DS ---
DISCHARGE SUMMARY: DATE OF ADMISSION: 09/10/16 DATE OF DISCHARGE: 09/12/16 SURGEON: Liseth Guthrie MD. PRINCIPAL DIAGNOSIS: Severe end-stage osteoarthritis of the left hip. DISCHARGE DIAGNOSIS: Severe end-stage osteoarthritis of the left hip. HISTORY OF PRESENT ILLNESS: Mr. Shetty is a 76-year-old female with complaints of left hip pain secondary to advanced osteoarthritis. She failed conservative management and elected to proceed with a left total hip arthroplasty. HOSPITAL COURSE: Ms. Shetty is a 76-year-old female who was admitted electively to the hospital on 09/10/16 and underwent a left total hip arthroplasty. She tolerated the procedure well and with no complications. Overall, her post-operative course was fairly unremarkable. She was placed on Lovenox and Coumadin for DVT prophylaxis. On postop day 1, her H and H was 8.3 and 24. On postop #2, her H and H had dropped to 7.2 and 21, and 2 units of packed red blood cells were transfused. She continued to make daily improvements with physical therapy, and at the time of discharge on 09/12/16, she was ambulating well with the use of a walker. Her pain was controlled with p.o. medications. She was stable. DISCHARGE MEDICATIONS: 1. Ventolin inhaler. 2. Enalapril. 3. Levothyroxine. 4. Colace. 5. Percocet. 6. Coumadin. PHYSICAL EXAMINATION: Upon discharge, she was afebrile. Vital signs were stable. Her wound was clean, dry and healing well. No signs of infection. Lower extremity muscular strengths were intact to 5/5. She had intact sensation , 2+ dorsalis pedis pulses. She is ambulating well with the aid of a walker. DISCHARGE INSTRUCTIONS: She was discharged home in stable condition. She was instructed to take 8 mg of Coumadin tonight, 8 mg of Coumadin Wednesday night. She will have her INR rechecked on Wednesday. She is weightbearing as tolerated. She may shower, but take no bath. Pat her incision dry and keep covered with a clean dry dressing daily. Dr. Guthrie would like to see her back in clinic in 10 to 14 days. She was given a prescription for Percocet for post-operative pain control, Colace to prevent constipation, Coumadin to take for the next month. We have asked her to call our with any questions or concerns. Otherwise, we will see her at her postoperative visit in 10 to 14 days. MAGNOLIA ALVAREZ [id number]/[facility] #: [id number]
[2016-09-12 15:52] VITALS: BP 133/63
== END 2016-09-12 18:20 | disposition home health service (06) | DRG 470 ==
LOC: AA 06:01 → SSU 13:41
PROVIDERS: ADMIT Orthopaedic Surgery Adult Reconstructive Orthopaedic Surgery; ATTEND Orthopaedic Surgery Adult Reconstructive Orthopaedic Surgery
PROC: 0SRB02A Replacement of Left Hip Joint with Metal on Polyethylene Synthetic Substitute, Uncemented, Open Approach (ICD-10-PCS; principal; 2016-09-10 07:30)
PROC: 30233N1 Transfusion of Nonautologous Red Blood Cells into Peripheral Vein, Percutaneous Approach (ICD-10-PCS; 2016-09-12)
DX: M16.12 Unilateral primary osteoarthritis, left hip (principal); I95.9 Hypotension, unspecified; E87.1 Hypo-osmolality and hyponatremia; Z96.641 Presence of right artificial hip joint; E66.01 Morbid (severe) obesity due to excess calories; D64.9 Anemia, unspecified; I10 Essential (primary) hypertension; E03.9 Hypothyroidism, unspecified; Z98.51 Tubal ligation status; Z96.651 Presence of right artificial knee joint; M25.752 Osteophyte, left hip; J45.909 Unspecified asthma, uncomplicated; Z98.42 Cataract extraction status, left eye; Z98.41 Cataract extraction status, right eye; Z68.30 Body mass index [BMI] 30.0-30.9, adult; Z82.49 Family history of ischemic heart disease and other diseases of the circulatory system; Z80.7 Family history of other malignant neoplasms of lymphoid, hematopoietic and related tissues
CPT/HCPCS: 36415; 72170; 80048; 84300; 85014; 85018; 85027; 85610; 86850; 86900; 86901; 86922; 88304; 88311; 94760; A9270-GY; C1713; C1776; J0690; J1100; J1200; J1650; J1885; J2250; J2405; J2704; J2795; J3010; P9040

== ENCOUNTER 2019-03-13 17:29 | Emergency (ER) | payer MEDICARE, BC ==
--- NOTE | 2019-03-13 17:53 | ED ---
Adult Trauma - HPI Summary HPI Summary: This pt is a 78 y/o female presenting to [facility] c/o witnessed LOC s/p fall with head strike today. 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 She notes she had a witnessed LOC after her fall that lasted a few seconds. Pt sustained a lower lip laceration and abrasion to her right arm. Denies loose teeth, chest pain, SOB. She states her last tetanus shot is UTD and it was less than 5 years ago. Patient currently without complaints. Not on blood thinners PMHx: HTN. - History of Current Complaint Chief Complaint: EDSyncope Stated Complaint: FALL/SPLIT LIP PER EMS Time Seen by Provider: 03/13/19 17:34 Hx Obtained From: Patient Mechanism of Injury: Fall Loss of Consciousness: brief (seconds) Onset/Duration: Started Hours Ago, Traumatic, Still Present Onset of Pain: Immediate Current Severity: Mild Pain Intensity: 1 Pain Scale Used: 0-10 Numeric Location: Extremities - right arm, Other - lower lip Aggravating Factor(s): Nothing Alleviating Factor(s): Nothing Associated Signs & Symptoms: Positive: Loss of Consciousness. Negative: SOB, Chest Pain, Fever Related History: Other: - positive LOC after fall with head strike - Additional Pertinent History Primary Care Physician: [id number] - Allergy/Home Medications Allergies/Adverse Reactions: Allergies Allergy/AdvReac Type Severity Reaction Status Date / Time No Known Allergies Allergy Verified 03/13/19 17:39 PMH/Surg Hx/FS Hx/Imm Hx Endocrine/Hematology History: Reports: Hx Thyroid Disease - HYPOTHYROID- ON MEDICATION FOR Denies: Hx Diabetes Cardiovascular History: Reports: Hx Hypertension Denies: Hx Pacemaker/ICD Respiratory History: Reports: Hx Asthma - MILD GI History: Denies: Other GI Disorders History: Denies: Hx Renal Disease Musculoskeletal History: Reports: Hx Arthritis Comment Only: Hx Rheumatoid Arthritis - OA Sensory History: Reports: Hx Cataracts, Hx Contacts or Glasses - GLASSES Denies: Hx Hearing Aid Opthamlomology History: Reports: Hx Cataracts, Hx Contacts or Glasses - GLASSES Psychiatric History: Denies: Hx Panic Disorder - Surgical History Surgery Procedure, Year, and Place: RIGHT TOTAL KNEE REPLACEMENT 2013 [facility]. BILATERAL CATARACT REMOVED- [facility]. APPENDECTOMY- A TEEN. Rt TOTAL HIP REPLACEMENT-04/2015. LEFT HIP REPLACEMENT 2017. tubal Hx Anesthesia Reactions: No Infectious Disease History: No Infectious Disease History: Denies: Hx Clostridium Difficile, Hx Hepatitis, Hx Human Immunodeficiency Virus (HIV), Hx of Known/Suspected MRSA, Hx Shingles, Hx Tuberculosis, History Other Infectious Disease, Traveled Outside the [place] in Last 30 Days - Family History Known Family History: Negative: Cardiac Disease, Diabetes Family History: Sister with lymphoma. - Social History Alcohol Use: Daily Alcohol Amount: WINE WITH DINNER Substance Use Type: Reports: None Smoking Status (MU): Never Smoked Tobacco Review of Systems Negative: Fever, Chills ENT: Other - POSITIVE: lip laceration Skin: Other - POSITIVE: abrasion on right arm Neurological: Other - POSITIVE: LOC All Other Systems Reviewed And Are Negative: Yes Physical Exam - Summary Physical Exam Summary: Constitutional: Well-developed, Well-nourished, Alert HENT: Normocephalic. Midface stable, tenderness to the left nasal bridge, with ecchymosis. No dental trauma, No trismus. 2 cm laceration to the inner lower lip. Eyes: EOM normal, PERRL Neck: Trachea midline, No stridor, No cervical step off, No posterior cervical spine tenderness Cardio: Rhythm regular, rate normal, Heart sounds normal, Radial pulses are 2+ and symmetric. Pulmonary/Chest wall: Effort normal, Breath sounds normal, (-) Stridor, Equal chest rise, No rib tenderness Abd: Soft, Appearance normal. (-) Distension, (-) Tenderness. Musculoskeletal: No extremity trauma. No TL midline tenderness. Neuro: Alert,GCS 15. Strength 5/5 all extremities. Ambulates w steady gait Skin: Warm, Dry, abrasion to the right forearm Triage Information Reviewed: Yes Vital Signs On Initial Exam: Initial Vitals Temp Pulse Resp BP Pulse Ox 96.8 F 67 16 143/87 97 03/13/19 17:36 03/13/19 17:36 03/13/19 17:36 03/13/19 17:36 03/13/19 17:36 Vital Signs Reviewed: Yes - [place] Coma Scale Best Eye Response: 4 - Spontaneous Best Motor Response: 6 - Obeys Commands Best Verbal Response: 5 - Oriented Coma Scale Total: 15 Procedures - Laceration/Wound Repair 1 Location: Other - lower lip Description: Linear Anesthesia: 1.0%, [place] Length, Depth and Shape: 2 cm in length Irrigated w/ Saline (ccs): 250 Laceration/Wound Explored: clean Suture Type: Chromic - 5-O Number of Sutures: 2 Diagnostics - Vital Signs Vital Signs Temp Pulse Resp BP Pulse Ox 03/13/19 17:36 96.8 F 67 16 143/87 97 - Laboratory Lab Statement: Any lab studies that have been ordered have been reviewed, and results considered in the medical decision making process. - CT Brain CT CT Interpretation Completed By: Radiologist Summary of CT Findings: IMPRESSION: No acute intracranial abnormality. Dr. Sanches has reviewed this report. Cervical spine CT CT Interpretation Completed By: Radiologist Summary of CT Findings: IMPRESSION: No acute C-spine fractures. Mild degenerative changes. Dr. Sanches has reviewed this report. Maxillofacial CT CT Interpretation Completed By: Radiologist Summary of CT Findings: IMPRESSION: Possible small fracture of the distal nasal bones of uncertain age. Dr. Sanches has reviewed this report. - EKG 17:58 Cardiac Rate: NL - at 63 bpm EKG Rhythm: Sinus Rhythm Summary of EKG Findings: T wave inversion in lead III. Re-Evaluation - Re-Evaluation First Eval Change: Improved - Laceration Completed, updated patient on finding of nasal bone fracture, she denies difficulty in breathing, no septal hematoma. Adult Trauma Course/Dx - Course Course Of Treatment: 78-year-old female who presents after, will fall with LOC. Physical exam with an inner lip laceration lower lip, as well as nasal bridge contusion and tenderness of the left side. No septal hematoma. Plan for brain and face and C-spine CT. Laceration repair. Tetanus is up-to-date - Diagnoses Provider Diagnoses: Laceration, Closed head injury, Nasal bone fracture Discharge ED - Sign-Out/Discharge Documenting (check all that apply): Patient Departure - Discharge home Patient Received Moderate/Deep Sedation with Procedure: No - Discharge Plan Condition: Stable Disposition: HOME Patient Education Materials: Nasal Fracture (ED), Laceration (ED), Concussion ( ED) Referrals: Frederick Damon MD [Primary Care Provider] - Jim Moralez MD [Medical Doctor] - Additional Instructions: Your head CT showed a nasal bone fracture. There is nothing to do about this acutely, if you notice that your nose is deformed follow-up with our plastic surgeon. You received sutures (stitches) today. Please keep the area dry and clean. Return to the emergency department or seek medical attention for drainage, redness to the area, increased pain around the laceration. Turned to the emergency department for continued pain, headaches, or if you're concerned. - Billing Disposition and Condition Condition: STABLE Disposition: Home - Attestation Statements Document Initiated by Kit: Yes Documenting Scribe: Cindy Mitchell Provider For Whom Kit is Documenting (Include Credential): Kira Sanches MD Scribe Attestation: ICindy, scribed for Kira Sanches MD on 03/13/19 at 1850. Scribe Documentation Reviewed: Yes Provider Attestation: The documentation as recorded by the Cindy villegas accurately reflects the service I personally performed and the decisions made by Kira winslow MD Status of Scribe Document: Viewed
[2019-03-13 19:05] VITALS: BP 138/90
== END 2019-03-13 19:05 | disposition home or self-care (01) ==
LOC: ED 17:29
DX: S01.511A Laceration without foreign body of lip, initial encounter (principal); S02.2XXA Fracture of nasal bones, initial encounter for closed fracture; W01.198A Fall on same level from slipping, tripping and stumbling with subsequent striking against other object, initial encounter; Y92.9 Unspecified place or not applicable; I10 Essential (primary) hypertension; E03.9 Hypothyroidism, unspecified; J45.909 Unspecified asthma, uncomplicated; Z79.82 Long term (current) use of aspirin; Z79.899 Other long term (current) drug therapy
CPT/HCPCS: 12011; 70450; 70486; 72125; 93005; 99282

== ENCOUNTER 2020-12-14 18:44 | Observation (INO) ==
[2020-12-14] MEDS ORDERED: NS 0.9% 1000 ml BAG 1,000 ML IV ONE (19:29)
[2020-12-14 19:46] LABS: ABS Basophils 0.1 10^3/ul (0-0.2); ABS Eosinophils 0.4 10^3/ul (0-0.6); ABS Lymphocytes 2.6 10^3/ul (1.0-4.8); ABS Monocytes 0.7 10^3/ul (0-0.8); ABS Neutrophils 3.9 10^3/ul (1.5-7.7); Eosinophil % 5.6 %; Hematocrit 37 % (35-47); Hemoglobin 12.7 g/dL (12.0-16.0); Lymphocyte % 33.5 %; Mean Corpuscular HGB Conc 34 g/dL (31-36); Mean Corpuscular Hemoglobin 31 pg (27-31); Mean Corpuscular Volume 91 fL (80-97); Mean Platelet Volume 8.5 fL (7.4-10.4); Nucleated Red Blood Cells % 0.1; Platelet Count 299 10^3/uL (150-450); Red Cell Distribution Width 14 % (10-15); White Blood Count 7.8 10^3/uL (3.5-10.8)
[2020-12-14 20:04] LABS: Albumin 4.3 g/dL (3.2-5.2); Albumin/Globulin Ratio 1.6 (1-3); Calcium 9.3 mg/dL (8.6-10.3); EGFR African American 70.4 (>60); EGFR Non-African American 58.2 (>60); Globulin 2.7 g/dL (2-4); Total Bilirubin 0.4 mg/dL (0.2-1.0); Troponin I 0.01 ng/mL (<0.03)
[2020-12-14] MEDS ORDERED: Aspirin EC 81 mg TAB.EC (enteric coated) PO ONE (20:10)
[2020-12-14 20:11] LABS: Activated Partial Thrombo Time 29.3 seconds (26.0-38.0); INR 0.99 (0.82-1.09)
[2020-12-14] MEDS ORDERED: Iodixanol (CONTRAST) 320 MG/ML 100 ML SDV IV ONE (20:21)
[2020-12-14] MEDS ORDERED: hydrALAZINE 20 mg/ml 1 ML Vial IV IV SLOW PU ONE (21:16)
[2020-12-14 21:53] LABS: Urine Appearance Clear; Urine Bacteria Absent (Absent); Urine Bilirubin Negative (Negative); Urine Blood 1+ (Negative); Urine Color Straw; Urine Glucose Negative (Negative); Urine Ketones Negative (Negative); Urine Nitrite Negative (Negative); Urine Protein Negative (Negative); Urine Red Blood Cell 1+(3-5/hpf) (Absent); Urine Specific Gravity 1.028 (1.002-1.030); Urine Squamous Epithelial Cell Present (Absent); Urine Urobilinogen Negative (Negative); Urine White Blood Cell Trace(0-5/hpf) (Absent)
[2020-12-14] MEDS ORDERED: Ondansetron 4 mg VIAL 2 MG/ML 2 ml VIAL IV PRN (22:26)
[2020-12-15 01:18] LABS: TSH Ultra Thyroid Stim Horm 6.15 mcIU/mL (0.34-5.60)
[2020-12-15] MEDS: Heparin 5000 UNITS/ML 1 mL VIAL SUBCUT SCH ×2 (04:12→17:34)
[2020-12-15 11:52] LABS: Free T3 2.5 pg/mL (2.5-3.9)
[2020-12-15] MEDS ORDERED: Enoxaparin 30 MG/0.3 ML SYR SUBCUT SCH (18:00)
[2020-12-16 12:22] VITALS: BP 155/91
== END 2020-12-16 16:10 | disposition home or self-care (01) ==
LOC: MEDTELE 18:44 → ED 18:44 → MEDTELE 12-15 00:52
PROVIDERS: ADMIT Pediatrics; ATTEND Hospitalist

== ENCOUNTER 2021-03-09 10:50 | Observation (INO) ==
[2021-03-09] MEDS ORDERED: NS 0.9% 1000 ml BAG 1,000 ML IV ONE (10:53)
[2021-03-09 11:06] LABS: ABS Basophils 0.1 10^3/ul (0-0.2); ABS Eosinophils 0.3 10^3/ul (0-0.6); ABS Lymphocytes 2.2 10^3/ul (1.0-4.8); ABS Monocytes 0.8 10^3/ul (0-0.8); ABS Neutrophils 4.7 10^3/ul (1.5-7.7); Eosinophil % 3.2 %; Hematocrit 38 % (35-47); Hemoglobin 12.8 g/dL (12.0-16.0); Mean Corpuscular HGB Conc 34 g/dL (31-36); Mean Corpuscular Hemoglobin 29 pg (27-31); Mean Corpuscular Volume 86 fL (80-97); Mean Platelet Volume 7.6 fL (7.4-10.4); Nucleated Red Blood Cells % 0.1; Platelet Count 319 10^3/uL (150-450); Red Blood Count 4.39 10^6 /uL (3.70-4.87); Red Cell Distribution Width 14 % (10-15)
[2021-03-09] MEDS ORDERED: Iodixanol (CONTRAST) 320 MG/ML 100 ML SDV IV ONE (11:13)
[2021-03-09 11:16] LABS: Activated Partial Thrombo Time 29.4 seconds (26.0-38.0); INR 0.94 (0.86-1.15)
[2021-03-09 11:24] LABS: Albumin 4.7 g/dL (3.2-5.2); Albumin/Globulin Ratio 1.7 (1-3); Calcium 9.4 mg/dL (8.6-10.3); EGFR African American 90.2 (>60); EGFR Non-African American 74.5 (>60); Globulin 2.7 g/dL (2-4); HDL Cholesterol 47.6 mg/dL; Potassium 3.6 mmol/L (3.5-5.0); Total Bilirubin 0.7 mg/dL (0.2-1.0); Total Protein 7.4 g/dL (6.4-8.9)
[2021-03-09] MEDS ORDERED: Labetalol IV 5 MG/ML 20 ml VIAL IV PUSH ONE (11:31)
[2021-03-09 12:18] LABS: Urine Appearance Clear; Urine Bilirubin Negative (Negative); Urine Blood 1+ (Negative); Urine Color Colorless; Urine Glucose Negative (Negative); Urine Ketones Negative (Negative); Urine Nitrite Negative (Negative); Urine Protein Negative (Negative); Urine Specific Gravity 1.011 (1.002-1.030); Urine Urobilinogen Negative (Negative)
[2021-03-09 12:20] LABS: Urine Bacteria Absent (Absent); Urine Red Blood Cell Trace(0-2/hpf) (Absent); Urine Squamous Epithelial Cell Present (Absent); Urine White Blood Cell Trace(0-5/hpf) (Absent)
[2021-03-09 15:38] LABS: TSH Ultra Thyroid Stim Horm 5.11 mcIU/mL (0.34-5.60)
[2021-03-09] MEDS: Heparin 5000 UNITS/ML 1 mL VIAL SUBCUT SCH (22:20)
[2021-03-09] MEDS: Cyanocobalamin INJ 1,000 MCG/ML VIAL 1 ML VIAL IM SCH (22:22)
[2021-03-10] MEDS: Heparin 5000 UNITS/ML 1 mL VIAL SUBCUT SCH ×2 (05:41→13:19)
[2021-03-10 06:49] LABS: ABS Eosinophils 0.3 10^3/ul (0-0.6); ABS Lymphocytes 1.4 10^3/ul (1.0-4.8); ABS Monocytes 0.8 10^3/ul (0-0.8); ABS Neutrophils 5.4 10^3/ul (1.5-7.7); Eosinophil % 3.2 %; Hematocrit 36 % (35-47); Hemoglobin 12.6 g/dL (12.0-16.0); Lymphocyte % 17.3 %; Mean Corpuscular HGB Conc 35 g/dL (31-36); Mean Corpuscular Hemoglobin 30 pg (27-31); Mean Corpuscular Volume 86 fL (80-97); Mean Platelet Volume 7.7 fL (7.4-10.4); Platelet Count 329 10^3/uL (150-450); Red Blood Count 4.26 10^6 /uL (3.70-4.87); Red Cell Distribution Width 13 % (10-15); White Blood Count 7.9 10^3/uL (3.5-10.8)
[2021-03-10 07:02] LABS: Calcium 9.3 mg/dL (8.6-10.3); EGFR African American 99.3 (>60); EGFR Non-African American 82.1 (>60); Potassium 3.2 mmol/L (3.5-5.0)
[2021-03-10] MEDS: Cyanocobalamin INJ 1,000 MCG/ML VIAL 1 ML VIAL IM SCH (09:43)
[2021-03-11] MEDS ORDERED: Labetalol IV 5 MG/ML 20 ml VIAL IV PUSH ONE (00:22)
[2021-03-11 07:49] LABS: ABS Eosinophils 0.2 10^3/ul (0-0.6); ABS Monocytes 0.7 10^3/ul (0-0.8); ABS Neutrophils 4.7 10^3/ul (1.5-7.7); Eosinophil % 3.7 %; Hematocrit 35 % (35-47); Hemoglobin 12.1 g/dL (12.0-16.0); Lymphocyte % 14.3 %; Mean Corpuscular HGB Conc 35 g/dL (31-36); Mean Corpuscular Hemoglobin 29 pg (27-31); Mean Corpuscular Volume 84 fL (80-97); Mean Platelet Volume 7.3 fL (7.4-10.4); Nucleated Red Blood Cells % 0.2; Platelet Count 303 10^3/uL (150-450); Red Blood Count 4.12 10^6 /uL (3.70-4.87); Red Cell Distribution Width 13 % (10-15); White Blood Count 6.7 10^3/uL (3.5-10.8)
[2021-03-11 08:01] LABS: Calcium 9.2 mg/dL (8.6-10.3); EGFR African American 99.3 (>60); EGFR Non-African American 82.1 (>60); Magnesium 1.8 mg/dL (1.9-2.7); Potassium 3.3 mmol/L (3.5-5.0)
[2021-03-11] MEDS: Cyanocobalamin INJ 1,000 MCG/ML VIAL 1 ML VIAL IM SCH (08:04)
[2021-03-11] MEDS ORDERED: Magnesium Sulfate 2 gm BAG 2 GM/50 ML BAG IVPB ONE (08:04)
[2021-03-11] MEDS: KCL 20 MEQ/100 ML IVPREMIX 20 MEQ/100 ML BAG IV SCH ×3 (10:16→16:08)
[2021-03-11] MEDS ORDERED: Aspirin EC 81 mg TAB.EC (enteric coated) PO SCH (11:00)
[2021-03-11 12:05] VITALS: BP 156/85
[2021-03-11] MEDS ORDERED: Heparin 5000 UNITS/ML 1 mL VIAL SUBCUT SCH (14:00)
[2021-03-11] MEDS ORDERED: Potassium Chlor 20 meq TAB.ER PO ONE (15:21)
[2021-03-12] MEDS ORDERED: Aspirin EC 81 mg TAB.EC (enteric coated) PO SCH (09:00)
== END 2021-03-11 16:05 | disposition home or self-care (01) ==
LOC: MEDTELE 10:50 → ED 10:50 → MEDTELE 16:10
PROVIDERS: ADMIT Internal Medicine; ATTEND Internal Medicine

== ENCOUNTER 2021-12-15 11:00 | Inpatient (IN) ==
[2021-12-15] MEDS ORDERED: TENECTEPLASE 50 MG VIAL KIT 5 MG/ML (reconstituted) IV ONE (11:34)
[2021-12-15] MEDS: Labetalol IV 5 MG/ML 20 ml VIAL IV PUSH ONE ×3 (11:43→16:39)
[2021-12-15 13:18] LABS: ABS Basophils 0.1 10^3/ul (0-0.2); ABS Eosinophils 0.1 10^3/ul (0-0.6); ABS Lymphocytes 0.7 10^3/ul (1.0-4.8); ABS Monocytes 1.1 10^3/ul (0-0.8); ABS Neutrophils 12.3 10^3/ul (1.5-7.7); Eosinophil % 0.5 %; Hematocrit 37 % (35-47); Hemoglobin 12.1 g/dL (12.0-16.0); Mean Corpuscular HGB Conc 33 g/dL (31-36); Mean Corpuscular Hemoglobin 28 pg (27-31); Mean Corpuscular Volume 86 fL (80-97); Mean Platelet Volume 7.9 fL (7.4-10.4); Platelet Count 279 10^3/uL (150-450); Red Blood Count 4.27 10^6 /uL (3.70-4.87); Red Cell Distribution Width 14 % (10-15); White Blood Count 14.3 10^3/uL (3.5-10.8)
[2021-12-15] MEDS ORDERED: Ondansetron 4 mg VIAL 2 MG/ML 2 ml VIAL IV PRN (13:29)
[2021-12-15 13:44] LABS: Activated Partial Thrombo Time 31.5 seconds (26.0-38.0); INR 1.02 (0.86-1.15)
[2021-12-15] MEDS: niCARdipine 0.1MG/ML IVPREMIX 20 MG/200 ML BAG IV SCH ×2 (16:41→21:09)
[2021-12-16 11:53] LABS: ABS Basophils 0.1 10^3/ul (0-0.2); ABS Eosinophils 0.1 10^3/ul (0-0.6); ABS Lymphocytes 1.4 10^3/ul (1.0-4.8); ABS Monocytes 0.9 10^3/ul (0-0.8); ABS Neutrophils 5.3 10^3/ul (1.5-7.7); Eosinophil % 1.2 %; Hematocrit 36 % (35-47); Hemoglobin 12.3 g/dL (12.0-16.0); Lymphocyte % 18.5 %; Mean Corpuscular HGB Conc 34 g/dL (31-36); Mean Corpuscular Hemoglobin 29 pg (27-31); Mean Corpuscular Volume 85 fL (80-97); Mean Platelet Volume 7.4 fL (7.4-10.4); Platelet Count 322 10^3/uL (150-450); Red Blood Count 4.19 10^6 /uL (3.70-4.87); Red Cell Distribution Width 13 % (10-15); White Blood Count 7.8 10^3/uL (3.5-10.8)
[2021-12-16 12:04] LABS: INR 1.05 (0.86-1.15)
[2021-12-16 12:30] LABS: Calcium 9.6 mg/dL (8.6-10.3); Potassium 3.8 mmol/L (3.5-5.0); eGFR CKD-EPI 79.2 (>60)
[2021-12-16 12:32] LABS: ALT 8 U/L (7-52); AST 10 U/L (13-39); Albumin 4.2 g/dL (3.2-5.2); Albumin/Globulin Ratio 1.5 (1-3); Alkaline Phosphatase 67 U/L (35-149); Globulin 2.8 g/dL (2-4); Indirect Bilirubin 0.7 mg/dL (0.3-1.0)
[2021-12-16 12:45] LABS: Urine Appearance Cloudy; Urine Bilirubin Negative (Negative); Urine Blood 2+ (Negative); Urine Color Yellow; Urine Glucose Negative (Negative); Urine Ketones Trace (Negative); Urine Nitrite Negative (Negative); Urine Protein Negative (Negative); Urine Specific Gravity 1.009 (1.002-1.030); Urine Urobilinogen Negative (Negative)
[2021-12-16 12:46] LABS: TSH Ultra Thyroid Stim Horm 3.24 mcIU/mL (0.34-5.60)
[2021-12-16 12:58] LABS: Vitamin B12 > 1450 pg/mL (180-914)
[2021-12-16 13:17] LABS: Urine Bacteria 1+ (Absent); Urine Red Blood Cell Trace(0-2/hpf) (Absent); Urine Squamous Epithelial Cell Present (Absent); Urine White Blood Cell Absent (Absent)
[2021-12-16] MEDS: Enoxaparin 40 MG/0.4 ML SYR SUBCUT SCH (15:57)
[2021-12-16] MEDS ORDERED: Labetalol IV 5 MG/ML 20 ml VIAL IV PUSH PRN (20:08)
[2021-12-16] MEDS ORDERED: Lorazepam PYXIS KEY ONE (21:29)
[2021-12-16] MEDS ORDERED: LORazepam 2 mg VIAL 1 ml ONE (21:30)
[2021-12-16] MEDS ORDERED: LORazepam 2 mg VIAL 1 ml IV PUSH SCH (22:00)
[2021-12-16] MEDS: Thiamine 100 MG/ML 2 ml VIAL (200 mg) IM ONE ×2 (22:16→22:31)
[2021-12-16] MEDS: Multivitamins/Minerals TAB PO SCH (22:17)
[2021-12-17 05:40] LABS: ABS Eosinophils 0.1 10^3/ul (0-0.6); ABS Lymphocytes 0.8 10^3/ul (1.0-4.8); ABS Monocytes 0.5 10^3/ul (0-0.8); ABS Neutrophils 4.3 10^3/ul (1.5-7.7); Eosinophil % 1.2 %; Hematocrit 35 % (35-47); Hemoglobin 11.5 g/dL (12.0-16.0); Lymphocyte % 13.7 %; Mean Corpuscular HGB Conc 33 g/dL (31-36); Mean Corpuscular Hemoglobin 29 pg (27-31); Mean Corpuscular Volume 88 fL (80-97); Mean Platelet Volume 7.5 fL (7.4-10.4); Nucleated Red Blood Cells % 0.1; Platelet Count 265 10^3/uL (150-450); Red Blood Count 3.92 10^6 /uL (3.70-4.87); Red Cell Distribution Width 14 % (10-15); White Blood Count 5.7 10^3/uL (3.5-10.8)
[2021-12-17 05:50] LABS: C Reactive Protein 10.47 mg/L (<8.01); Calcium 9.2 mg/dL (8.6-10.3); Potassium 4.1 mmol/L (3.5-5.0); eGFR CKD-EPI 80.4 (>60)
[2021-12-17] MEDS ORDERED: Midazolam 5 mg/5 ml VIAL 1 mg/ml 5 ml VIAL (5 mg) ONE (09:07)
[2021-12-17] MEDS ORDERED: fentaNYL 100 mcg/2 ml 50 MCG/ML VIAL ONE (09:07)
[2021-12-17] MEDS ORDERED: Flumazenil 0.5 mg/5 ml 0.1 MG/ML 5 ml VIAL ONE (09:08)
[2021-12-17] MEDS ORDERED: Naloxone 0.4 mg VIAL 0.4 mg/ml 1 ml VIAL ONE (09:08)
[2021-12-17] MEDS: Multivitamins/Minerals TAB PO SCH (15:40)
[2021-12-17] MEDS: Enoxaparin 40 MG/0.4 ML SYR SUBCUT SCH (15:41)
[2021-12-17] MEDS: cefTRIAXone 1 gm/50 mL D5W 1 GM/50 ML BAG IV SCH (17:20)
[2021-12-17] MEDS ORDERED: Haloperidol 5 mg/ml SDV IV/IM 5 MG/ML AMP IV SLOW PU PRN (19:24)
[2021-12-18] MEDS: Multivitamins/Minerals TAB PO SCH (08:32)
[2021-12-18 11:12] LABS: Hematocrit 36 % (35-47); Hemoglobin 12.3 g/dL (12.0-16.0); Mean Corpuscular HGB Conc 35 g/dL (31-36); Mean Corpuscular Hemoglobin 30 pg (27-31); Mean Corpuscular Volume 86 fL (80-97); Mean Platelet Volume 7.4 fL (7.4-10.4); Platelet Count 304 10^3/uL (150-450); Red Blood Count 4.13 10^6 /uL (3.70-4.87); Red Cell Distribution Width 13 % (10-15); White Blood Count 10.6 10^3/uL (3.5-10.8)
[2021-12-18 11:50] LABS: Calcium 9.5 mg/dL (8.6-10.3); Magnesium 1.9 mg/dL (1.9-2.7); Potassium 3.7 mmol/L (3.5-5.0); eGFR CKD-EPI 87.4 (>60)
[2021-12-18 12:11] LABS: ABS Eosinophils 0.1 10^3/ul (0-0.6); ABS Monocytes 1.1 10^3/ul (0-0.8); ABS Neutrophils 8.5 10^3/ul (1.5-7.7); Eosinophil % 0.6 %; Lymphocyte % 9.3 %
[2021-12-18 12:12] LABS: RBC Morphology Normal (Normal)
[2021-12-18] MEDS ORDERED: Potassium Chlor 20 meq TAB.ER PO ONE (13:24)
[2021-12-18] MEDS ORDERED: Magnesium Sulfate IV 1GM/100ML 1 GM/100 ML BAG IV ONE (13:24)
[2021-12-18] MEDS: Enoxaparin 40 MG/0.4 ML SYR SUBCUT SCH (14:11)
[2021-12-18] MEDS: cefTRIAXone 1 gm/50 mL D5W 1 GM/50 ML BAG IV SCH (17:05)
[2021-12-18] MEDS: Heparin DRIP 25,000 UNITS BAG 25,000 UNITS/500 ML BAG IV SCH (18:31)
[2021-12-19 04:36] LABS: ABS Basophils 0.1 10^3/ul (0-0.2); ABS Eosinophils 0.3 10^3/ul (0-0.6); ABS Lymphocytes 1.7 10^3/ul (1.0-4.8); ABS Neutrophils 4.7 10^3/ul (1.5-7.7); Eosinophil % 3.5 %; Hematocrit 36 % (35-47); Hemoglobin 12.1 g/dL (12.0-16.0); Lymphocyte % 21.7 %; Mean Corpuscular HGB Conc 33 g/dL (31-36); Mean Corpuscular Hemoglobin 29 pg (27-31); Mean Corpuscular Volume 86 fL (80-97); Mean Platelet Volume 7.4 fL (7.4-10.4); Platelet Count 304 10^3/uL (150-450); Red Blood Count 4.26 10^6 /uL (3.70-4.87); Red Cell Distribution Width 13 % (10-15); White Blood Count 7.7 10^3/uL (3.5-10.8)
[2021-12-19] MEDS: Heparin 5000 UNITS/ML 1 mL VIAL IV SCH ×3 (04:57→19:05)
[2021-12-19 05:39] LABS: Calcium 9.1 mg/dL (8.6-10.3); Magnesium 2.2 mg/dL (1.9-2.7); Potassium 3.9 mmol/L (3.5-5.0); eGFR CKD-EPI 87.4 (>60)
[2021-12-19] MEDS: Multivitamins/Minerals TAB PO SCH (08:12)
[2021-12-19] MEDS: cefTRIAXone 1 gm/50 mL D5W 1 GM/50 ML BAG IV SCH (15:53)
[2021-12-19] MEDS: Heparin DRIP 25,000 UNITS BAG 25,000 UNITS/500 ML BAG IV SCH (19:07)
[2021-12-20 04:44] LABS: ABS Basophils 0.1 10^3/ul (0-0.2); ABS Eosinophils 0.3 10^3/ul (0-0.6); ABS Lymphocytes 2.2 10^3/ul (1.0-4.8); ABS Monocytes 0.8 10^3/ul (0-0.8); ABS Neutrophils 3.6 10^3/ul (1.5-7.7); Eosinophil % 4.1 %; Hematocrit 32 % (35-47); Hemoglobin 11.2 g/dL (12.0-16.0); Lymphocyte % 31.1 %; Mean Corpuscular HGB Conc 35 g/dL (31-36); Mean Corpuscular Hemoglobin 29 pg (27-31); Mean Corpuscular Volume 85 fL (80-97); Mean Platelet Volume 7.2 fL (7.4-10.4); Platelet Count 327 10^3/uL (150-450); Red Blood Count 3.79 10^6 /uL (3.70-4.87); Red Cell Distribution Width 13 % (10-15)
[2021-12-20 05:31] LABS: eGFR CKD-EPI 79.2 (>60)
[2021-12-20] MEDS: Multivitamins/Minerals TAB PO SCH (08:15)
[2021-12-20] MEDS: cefTRIAXone 1 gm/50 mL D5W 1 GM/50 ML BAG IV SCH (17:35)
[2021-12-20] MEDS: Heparin DRIP 25,000 UNITS BAG 25,000 UNITS/500 ML BAG IV SCH (19:14)
[2021-12-20] MEDS: Heparin 5000 UNITS/ML 1 mL VIAL IV SCH (21:54)
[2021-12-21 05:27] LABS: ABS Basophils 0.1 10^3/ul (0-0.2); ABS Eosinophils 0.4 10^3/ul (0-0.6); ABS Lymphocytes 1.7 10^3/ul (1.0-4.8); ABS Monocytes 0.7 10^3/ul (0-0.8); ABS Neutrophils 3.2 10^3/ul (1.5-7.7); Eosinophil % 5.8 %; Hematocrit 33 % (35-47); Hemoglobin 11.2 g/dL (12.0-16.0); Lymphocyte % 28.1 %; Mean Corpuscular HGB Conc 34 g/dL (31-36); Mean Corpuscular Hemoglobin 29 pg (27-31); Mean Corpuscular Volume 85 fL (80-97); Mean Platelet Volume 7.1 fL (7.4-10.4); Platelet Count 340 10^3/uL (150-450); Red Blood Count 3.94 10^6 /uL (3.70-4.87); Red Cell Distribution Width 13 % (10-15)
[2021-12-21 05:59] LABS: Calcium 8.8 mg/dL (8.6-10.3); Potassium 3.8 mmol/L (3.5-5.0); eGFR CKD-EPI 73.3 (>60)
[2021-12-21] MEDS: Multivitamins/Minerals TAB PO SCH (10:12)
[2021-12-21] MEDS: Heparin DRIP 25,000 UNITS BAG 25,000 UNITS/500 ML BAG IV SCH (19:02)
[2021-12-21] MEDS: cefTRIAXone 1 gm/50 mL D5W 1 GM/50 ML BAG IV SCH (21:54)
[2021-12-22 05:40] LABS: ABS Basophils 0.1 10^3/ul (0-0.2); ABS Eosinophils 0.4 10^3/ul (0-0.6); ABS Lymphocytes 1.9 10^3/ul (1.0-4.8); ABS Monocytes 0.8 10^3/ul (0-0.8); ABS Neutrophils 4.8 10^3/ul (1.5-7.7); Eosinophil % 4.4 %; Hematocrit 36 % (35-47); Hemoglobin 12.1 g/dL (12.0-16.0); Mean Corpuscular HGB Conc 34 g/dL (31-36); Mean Corpuscular Hemoglobin 29 pg (27-31); Mean Corpuscular Volume 85 fL (80-97); Mean Platelet Volume 7.2 fL (7.4-10.4); Platelet Count 356 10^3/uL (150-450); Red Blood Count 4.17 10^6 /uL (3.70-4.87); Red Cell Distribution Width 13 % (10-15); White Blood Count 7.9 10^3/uL (3.5-10.8)
[2021-12-22 06:19] LABS: eGFR CKD-EPI 75.6 (>60)
[2021-12-22] MEDS: Multivitamins/Minerals TAB PO SCH (08:15)
[2021-12-22 12:07] VITALS: BP 146/82
[2021-12-25 16:52] LABS: Mono-Oligosaccharide/Di-Oligos 0.02 (0.00-0.10)
== END 2021-12-22 13:00 | disposition home health service (06) | DRG 62 ==
LOC: ED 11:00 → EDHOLD 13:29 → ICU 16:00 → MEDTELE 12-20 15:45
PROVIDERS: ADMIT Internal Medicine; ATTEND Pediatrics